=== PATIENT | male | born 1995 | race Caucasian/White ===

== ENCOUNTER → 2025-07-17 08:40 | Outpatient (CLI) | payer OTHER, SELFPAY ==
[2025-07-17 11:09] LABS: Influenza A - CEPHEID Flu A NEGATIVE (NEGATIVE); Influenza B - CEPHEID Flu B NEGATIVE (NEGATIVE)
[2025-07-17 12:15] LABS: COVID-19 CEPHEID 4-PLEX PCR Negative (Negative)
== END ==
PROVIDERS: Visit Provider Registered Nurse
DX: J02.9 Acute pharyngitis, unspecified (principal)
CPT/HCPCS: 87070; 87637